=== PATIENT | female | born 1990 | race African-American/Black ===

== ENCOUNTER 2018-03-30 17:40 | Emergency (ER) | payer MEDICAID ==
[~2018-03-30] VITALS: Ht 165.1 cm; Wt 59.0 kg
[~2018-03-30 17:40] MED LIST: ACETAMINOPHEN500 M3 ORAL; ALBUTEROL SULF8.5 GM INH; AZITHROMYCIN250 MG PO; CIPRO500 MG PO; NKM; PHENAZOPYRIDIN200 MG ORAL; bcp PO
[2018-03-30 17:55] VITALS: BP 102/62
--- NOTE | 2018-03-30 18:46 | Diagnostic Imaging Report ---
EXAM: XR Chest, 1 View CLINICAL HISTORY: PAIN TECHNIQUE: Frontal view of the chest. COMPARISON: No relevant prior studies available. FINDINGS: Lungs: Increased lung volumes, which may represent hyperinflation versus exceptional inspiratory effort. Otherwise normal chest. Pleural space: Unremarkable. No pneumothorax. Heart: Unremarkable. No cardiomegaly. Mediastinum: Unremarkable. Bones/joints: Unremarkable. IMPRESSION: Increased lung volumes, which may represent hyperinflation versus exceptional inspiratory effort. Otherwise normal chest.
--- NOTE | 2018-03-30 18:47 | Emergency Room Report ---
History of Present Illness General Chief Complaint: Upper Respiratory Illness Source: Patient (Isi Noel) Present Illness HPI 27-year-old female presents to the emergency department complaining of persistent dry cough 3 weeks that returned after she had mild URI. Patient states that the last 3 days she has noticed some increased sputum production and some blood tinge to the sputum. Denies fevers or chills she reports intermittent wheezing she states her cough is worse at night and in the morning when she wakes up. Patient also has been noticing some nasal congestion as well. Patient denies history of asthma or been a smoker. Patient does state that several years ago she was diagnosed with bronchitis and required inhalers and every now and then she would have to use inhaler again because wheezing when returned. Patient states she's never been evaluated for asthma. His fevers, chills, sore throat, earache, neck pain or stiffness. Patient denies swollen tender lymph nodes or CP. (Isi Noel) Allergies: Coded Allergies: KETOROLAC TROMETHAMINE (Verified Allergy, Mild, Hives, 11/11/12) Patient History Past Medical History: see triage record Past Surgical History: none Pertinent Family History: none Last Menstrual Period: 03/04/18 Now: No Immunizations: UTD Reviewed Nursing Documentation: PMH: Agreed; PSxH: Agreed (Isi Noel) Nursing Documentation-PMH Past Medical History: No Stated History (Isi Noel) Review of Systems All Other Systems: negative except mentioned in HPI (Isi Noel) Physical Exam Vital Signs Date Time Temp Pulse Resp B/P (MAP) Pulse Ox O2 Delivery O2 Flow Rate FiO2 03/30/18 17:55 98.9 78 16 102/62 98 Room Air 98.9 Sp02 EP Interpretation: reviewed, normal General Appearance: no apparent distress, alert, GCS 15, non-toxic Head: normocephalic, atraumatic ENT: hearing grossly normal, normal voice, nasal congestion Neck: full range of motion, no meningismus, no bony tend Respiratory: chest non-tender, lungs clear, normal breath sounds, no rhonchi, no respiratory distress, no retraction, no accessory muscle use, speaking full sentences, wheezing - mild expiratory wheezes Cardiovascular #1: regular rate, rhythm Musculoskeletal: back normal, gait/station normal, normal range of motion, non- tender Neurologic: alert, oriented x3, responsive, motor strength/tone normal, sensory intact, speech normal, grossly normal Psychiatric: judgement/insight normal Skin: normal color, no rash, warm/dry, well hydrated Lymphatic: no adenopathy (Isi Noel) Medical Decision Making PA Attestation Dr. Vásquez is my supervising Physician whom patient management has been discussed with. (Isi Noel) Diagnostic Impression: Primary Impression: Bronchitis ER Course 27-year-old female presents to the emergency department complaining of persistent dry cough 3 weeks that returned after she had mild URI. Patient states that the last 3 days she has noticed some increased sputum production and some blood tinge to the sputum. Denies fevers or chills she reports intermittent wheezing she states her cough is worse at night and in the morning when she wakes up. Patient also has been noticing some nasal congestion as well. Patient denies history of asthma or been a smoker. Patient does state that several years ago she was diagnosed with bronchitis and required inhalers and every now and then she would have to use inhaler again because wheezing when returned. Patient states she's never been evaluated for asthma. His fevers, chills, sore throat, earache, neck pain or stiffness. Patient denies swollen tender lymph nodes or CP. Ddx considered but are not limited to URI, pneumonia, PE, strep pharyngitis, meningitis. Vital signs: Pt.is afebrile VS are WNL H&PE are most consistent with bronchitis ORDERS: CXR: unremarkable ED INTERVENTIONS: None required at this time. DISCHARGE: At this time pt. is stable for d/c to home. Will provide printed patient care instructions, and any necessary prescriptions. Care plan and follow up instructions have been discussed with the patient prior to discharge. (Isi Noel) Chest X-Ray Diagnostic Results Chest X-Ray Diagnostic Results : Chest X-Ray Ordered: Yes # of Views/Limited/Complete: 1 View Indication: Other - productive cough > 3 weeks EP Interpretation: Yes PA Xray: Interpretation reviewed, by supervising MD, and agrees with findings. Interpretation: no consolidation, no effusion, no pneumothorax Impression: No acute disease Electronically Signed by: Isi Noel PA-C (Isi Noel) Chest X-Ray Diagnostic Results : Electronically Signed by: Marcelino documentation reviewed by me and is accurate, Mani Vásquez MD. (Mani Vásquez M.D.) Last Vital Signs Date Time Temp Pulse Resp B/P (MAP) Pulse Ox O2 Delivery O2 Flow Rate FiO2 03/30/18 18:09 78 16 Room Air 03/30/18 17:55 98.9 102/62 98 99.0 (Isi Noel) Disposition: HOME, SELF-CARE Condition: Stable Scripts Loratadine/Pseudoephedrine (CLARITIN-D 12 HOUR TABLET) 1 Each Tab.er.12h 1 TAB ORAL EVERY 12 HOURS for 7 Days, #14 TAB Prov: Isi Noel 03/30/18 Prednisone* (PREDNISONE*) 20 Mg Tablet 20 MG ORAL DAILY, #4 TAB 0 Refills Prov: Isi Noel 03/30/18 Albuterol Sulfate* (ALBUTEROL SULFATE MDI*) 8.5 Gm Hfa.aer.ad 2 PUFF INH Q3H, #1 INH 0 Refills Prov: Isi Noel 03/30/18 Benzonatate* (TESSALON PERLE*) 100 Mg Capsule 100 MG ORAL THREE TIMES A DAY, #22 PERLE Prov: Isi Noel 03/30/18 Codeine/Promethazine Hcl* (PROMETHAZINE-CODEINE SYRUP*) 118 Ml Syrup 5 ML ORAL Q6H PRN for For Cough, #120 ML 0 Refills Prov: Isi Noel 03/30/18 Patient Instructions: Acute Bronchitis, [id number], Hemoptysis, [id number] Additional Instructions: Take medications as directed. Follow up with a Primary Care Provider in 3-5 days, even if your symptoms have resolved. --Please review list of primary care clinics, if you do not already have a primary care provider Return sooner to ED if new symptoms occur, or current symptoms become worse. Do not drink alcohol, drive, or operate heavy machinery while taking Cough Syrup as this may cause drowsiness. - Please note that this Emergency Department Report was dictated using [employer] decorating consultant technology software, occasionally this can lead to erroneous entry secondary to interpretation by the dictation equipment. Isi Noel Mar 30, 2018 18:47 Mani Vásquez M.D. Mar 31, 2018 02:54
[2018-03-30] MEDS ORDERED: ALBUTEROL SULF8.5 GM INH (18:48)
[2018-03-30] MEDS ORDERED: PROMETHAZINE-C118 M1 ORAL (18:48)
[2018-03-30] MEDS ORDERED: TESSALON PERLE100 MG ORAL (18:48)
[2018-03-30] MEDS ORDERED: PREDNISONE20 MG ORAL (18:48)
[2018-03-30] MEDS ORDERED: CLARITIN-D 121 EAC1 ORAL (18:48)
[2018-03-30 19:15] VITALS: BP 102/62
== END 2018-03-30 19:15 | disposition home or self-care (01) ==
LOC: EMR 18:15
DX: J40 Bronchitis, not specified as acute or chronic (principal); Z88.8 Allergy status to other drugs, medicaments and biological substances
CPT/HCPCS: 71045; 99284